=== PATIENT | male | born 1955 | race Caucasian/White ===

== ENCOUNTER 2020-11-30 16:21 | Emergency (ER) | payer OTHER ==
[~2020-11-30 16:21] MED LIST: ATORVASTATIN CA80 MG PO; CATAPRES 0.1MG0.1 MG PO; CRESTOR40 MG PO; ELAVIL 25 MG TA25 MG PO; FISH OIL 1,0001 EACH PO; FLOMAX0.4 MG PO; HYDROCHLOROTHIA25 MG PO; LANTUS100 UNIT/1 SQ; LEVEMIR100 UNIT/1 SC; LEXAPRO20 MG PO; LIPITOR TAB 1010 MG PO; LOVENOX SY40 MG/0.4 SQ; MIRTAZAPINE30 MG PO; MS CONTIN TAB S30 MG PO; NAPROSYN EC 50500 MG PO; NEURONTIN 300300 MG PO; NEURONTIN 400400 MG PO; NORCO 5-325 TA1 EACH PO; NORVASC 5 MG TAB5 MG PO; NOVOLOG 10100 UNITS2 INJ; NOVOLOG100 UNIT/1 SQ; OXYCODONE HCL5 MG PO; OXYCONTIN30 MG PO; PROAMATINE 2.52.5 MG PO; REMERON30 MG PO; ROXICODONE TAB 55 MG PO; SYNTHROID137 MCG PO; TOPROL XL50 MG PO; TOUJEO SQ; TRICOR145 MG PO; TUMS ULTRA400 MG PO; ZANAFLEX 4 MG TA4 MG PO; ZANAFLEX4 MG PO; ZESTRIL/PRINIVI10 MG PO; ZESTRIL40 MG PO
[2020-11-30 17:07] LABS: HEMOGLOBIN 16.1 gm/dl (14.0-17.5); RED BLOOD COUNT 5.91 M/UL (4.20-5.50); WHITE BLOOD COUNT 8.3 K/UL (4.5-11.0)
[2020-11-30 17:32] LABS: BUN/CREATININE RATIO 11 (0-10)
== END 2020-11-30 19:55 | disposition home or self-care (01) ==
LOC: ER1 16:21
PROVIDERS: Family Medicine
DX: R06.00 Dyspnea, unspecified (principal); R53.1 Weakness; I12.9 Hypertensive chronic kidney disease with stage 1 through stage 4 chronic kidney disease, or unspecified chronic kidney disease; E11.22 Type 2 diabetes mellitus with diabetic chronic kidney disease; N18.9 Chronic kidney disease, unspecified; Z79.4 Long term (current) use of insulin; E78.5 Hyperlipidemia, unspecified; Z79.82 Long term (current) use of aspirin; Z79.899 Other long term (current) drug therapy
CPT/HCPCS: 71045; 80053; 81001; 82550; 82553; 83874; 83880; 84439; 84443; 84484; 85025; 85610; 93005; 99285

== ENCOUNTER → 2021-02-02 | Outpatient (CLI) | payer OTHER | LOC: KOH-I 09:37 | DX: M96.1 Postlaminectomy syndrome, not elsewhere classified (principal); G89.4 Chronic pain syndrome; M47.816 Spondylosis without myelopathy or radiculopathy, lumbar region; M47.817 Spondylosis without myelopathy or radiculopathy, lumbosacral region | CPT/HCPCS: 72131 ==

== ENCOUNTER 2021-04-29 17:09 | Emergency (ER) | payer OTHER | END 2021-04-29 17:53 | disposition home or self-care (01) | LOC: ER1 17:09 | DX: Z76.0 Encounter for issue of repeat prescription (principal) | CPT/HCPCS: 99281 ==

== ENCOUNTER 2021-08-20 03:49 | Emergency (ER) | payer OTHER ==
[2021-08-20 04:55] LABS: HEMOGLOBIN 15.6 gm/dl (14.0-17.5); RED BLOOD COUNT 5.51 M/UL (4.20-5.50); WHITE BLOOD COUNT 10.3 K/UL (4.5-11.0)
[2021-08-20 05:06] LABS: BUN/CREATININE RATIO 14 (0-10)
== END 2021-08-20 07:20 | disposition home or self-care (01) ==
LOC: ER1 03:49
PROVIDERS: Family Medicine
DX: E11.65 Type 2 diabetes mellitus with hyperglycemia (principal); R05.9 Cough, unspecified; Z20.822 Contact with and (suspected) exposure to COVID-19; E78.5 Hyperlipidemia, unspecified; E11.43 Type 2 diabetes mellitus with diabetic autonomic (poly)neuropathy; Z79.4 Long term (current) use of insulin; K31.84 Gastroparesis; Z95.5 Presence of coronary angioplasty implant and graft; E11.22 Type 2 diabetes mellitus with diabetic chronic kidney disease; I12.9 Hypertensive chronic kidney disease with stage 1 through stage 4 chronic kidney disease, or unspecified chronic kidney disease; R09.89 Other specified symptoms and signs involving the circulatory and respiratory systems; N18.9 Chronic kidney disease, unspecified
CPT/HCPCS: 0240U; 71045; 80053; 81001; 82009; 82550; 82553; 83605; 83874; 83880; 84484; 85025; 87040; 93005; 99284; J7030

== ENCOUNTER → 2021-08-22 | Outpatient (CLI) | payer OTHER | LOC: KOH-I 15:29 | DX: M48.02 Spinal stenosis, cervical region (principal); M50.31 Other cervical disc degeneration, high cervical region; M25.78 Osteophyte, vertebrae | CPT/HCPCS: 72125 ==

== ENCOUNTER 2021-12-23 16:08 | Emergency (ER) | payer OTHER | END 2021-12-23 17:30 | disposition home or self-care (01) | LOC: ER1 16:08 | DX: M79.81 Nontraumatic hematoma of soft tissue (principal); M79.661 Pain in right lower leg; E11.9 Type 2 diabetes mellitus without complications | CPT/HCPCS: 93971; 99283 ==

== ENCOUNTER → 2022-01-10 | Outpatient (CLI) | payer OTHER | LOC: KOH-I 15:30 | DX: M79.672 Pain in left foot (principal); M79.671 Pain in right foot; D45 Polycythemia vera; M54.50 Low back pain, unspecified; E03.9 Hypothyroidism, unspecified; R79.89 Other specified abnormal findings of blood chemistry; E11.22 Type 2 diabetes mellitus with diabetic chronic kidney disease; N18.9 Chronic kidney disease, unspecified; Z95.5 Presence of coronary angioplasty implant and graft; G90.9 Disorder of the autonomic nervous system, unspecified; R80.9 Proteinuria, unspecified; M19.071 Primary osteoarthritis, right ankle and foot | CPT/HCPCS: 73630; 93925 ==

== ENCOUNTER 2022-05-01 17:48 | Emergency (ER) | payer OTHER ==
[2022-05-01 19:31] LABS: HEMOGLOBIN 15.2 gm/dl (14.0-17.5); RED BLOOD COUNT 5.02 M/UL (4.20-5.50); WHITE BLOOD COUNT 8.1 K/UL (4.5-11.0)
[2022-05-01] MEDS ORDERED: OMNICEF 300 MG300 MG PO (21:35)
== END 2022-05-01 21:55 | disposition home or self-care (01) ==
LOC: ER1 17:48
PROVIDERS: Student in an Organized Health Care Education/Training Program
DX: L03.116 Cellulitis of left lower limb (principal); I12.9 Hypertensive chronic kidney disease with stage 1 through stage 4 chronic kidney disease, or unspecified chronic kidney disease; N18.9 Chronic kidney disease, unspecified; E11.22 Type 2 diabetes mellitus with diabetic chronic kidney disease; W19.XXXA Unspecified fall, initial encounter; Y92.009 Unspecified place in unspecified non-institutional (private) residence as the place of occurrence of the external cause
CPT/HCPCS: 73590; 73610; 73630; 80053; 85025; 96374; 99283; J0696